=== PATIENT | male | born 1960 | race Caucasian/White ===

== ENCOUNTER 2017-03-08 08:22 | Observation (INO) | payer OTHER ==
[~2017-03-08] VITALS: Ht 175.3 cm; Wt 88.6 kg
[~2017-03-08 08:22] MED LIST: ADVAIR HFA120 INHALA IH; COMBIVENT RESPIM4 GM IH; PREDNISONE20 MG PO; TYLENOL REGULA325 MG PO
[2017-03-08 10:34] LABS: HEMATOCRIT 55.9 % (38.0-50.0); MCH 35.9 PG (29.0-34.0); MCHC 36.3 G/DL (30.0-36.0); MCV 98.9 FL (86-99); MEAN PLAT.VOLUME 9.7 uM^3 (9.0-12.4); PLATELET COUNT 94 K/uL (156-360); RBC DIS.WIDTH-CV 14.4 % (11.8-14.6); RBC DIS.WIDTH-SD 51.3 % (39-53); RED BLOOD COUNT 5.65 M/uL (4.00-5.50); WHITE BLOOD COUNT 7.8 K/uL (4.1-10.2)
[2017-03-08 10:45] LABS: PROTHROMBIN TIME 27.4 (9.2-11.2); PTT 26.3 (25-32)
[2017-03-08 10:52] LABS: CHLORIDE 98 mEq/L (99-109); SODIUM 140 mEq/L (136-147)
[2017-03-08 10:54] LABS: GLUCOSE 177 mg/dL (70-99)
[2017-03-08 10:55] LABS: ANION GAP 11 MEQ/L (2-14); INTER. NORMALIZED RATIO 2.6
[2017-03-08 10:56] LABS: TOTAL BILIRUBIN 2.2 mg/dL (0.0-1.0)
[2017-03-08 10:57] LABS: ALKALINE PHOSPHATASE 92 IU/L (3-129)
[2017-03-08 10:58] LABS: GFR ESTIMATE (CALCULATED) > 59 mL/min/
[2017-03-08 10:59] LABS: UREA NITROGEN (BUN) 5 mg/dL (9-23)
[2017-03-08] MEDS ORDERED: COMBIVENT RESPIM4 GM IH (13:11)
[2017-03-08] MEDS ORDERED: ADVAIR HFA120 INHALA IH (13:11)
[2017-03-08 15:21] LABS: INTER. NORMALIZED RATIO 1.4; PTT 28.3 (25-32)
[2017-03-08 15:23] LABS: Estimated Average Glucose 163 mg/dL (70-123); HEMOGLOBIN A1c (GLYCOHEMOGLOB) 7.3 % HGB (Below 5.7)
[2017-03-08 15:23] LABS: PROTHROMBIN TIME 14.5 (9.2-11.2)
[2017-03-08 20:10] VITALS: BP 147/86
[2017-03-09 00:14] VITALS: BP 154/82
[2017-03-09 07:07] LABS: MCH 37.1 PG (29.0-34.0); MCHC 36.9 G/DL (30.0-36.0); MCV 100.5 FL (86-99); MEAN PLAT.VOLUME 10.4 uM^3 (9.0-12.4); PLATELET COUNT 92 K/uL (156-360); RBC DIS.WIDTH-CV 14.6 % (11.8-14.6); RBC DIS.WIDTH-SD 53.9 % (39-53); RED BLOOD COUNT 5.47 M/uL (4.00-5.50); WHITE BLOOD COUNT 7.6 K/uL (4.1-10.2)
[2017-03-09 07:19] LABS: INTER. NORMALIZED RATIO 1.3; PROTHROMBIN TIME 13.2 (9.2-11.2)
[2017-03-09 07:36] LABS: ANION GAP 12 MEQ/L (2-14); CHLORIDE 98 MEQ/L (99-109); GFR ESTIMATE (CALCULATED) > 59 mL/min/; GLUCOSE 151 mg/dL (70-99); POTASSIUM 3.1 MEQ/L (3.7-5.4); SAMPLE HEMOLYSIS CHECK 0; SAMPLE ICTERIC CHECK 1; SAMPLE LIPEMIA CHECK 0; SODIUM 139 MEQ/L (136-147); UREA NITROGEN (BUN) 7 mg/dL (9-23)
[2017-03-09 08:07] VITALS: BP 136/91
[2017-03-09] MEDS ORDERED: XARELTO1 EACH PO (10:30)
[2017-03-09 11:51] LABS: POINT-OF-CARE METER ID UU13113725
[2017-03-09] MEDS ORDERED: ADVAIR HFA120 INHALA IH (14:30)
[2017-03-09] MEDS ORDERED: COMBIVENT RESPIM4 GM IH (14:30)
[2017-03-09] MEDS ORDERED: ENDOCET 5-3251 EACH PO (15:09)
[2017-03-09 15:34] VITALS: BP 136/86
[2017-03-09 15:52] LABS: ANION GAP 9 MEQ/L (2-14); CHLORIDE 99 MEQ/L (99-109); GFR ESTIMATE (CALCULATED) > 59 mL/min/; GLUCOSE 171 mg/dL (70-99); POTASSIUM 3.6 MEQ/L (3.7-5.4); SAMPLE HEMOLYSIS CHECK 0; SAMPLE ICTERIC CHECK 0; SAMPLE LIPEMIA CHECK 0; SODIUM 137 MEQ/L (136-147); UREA NITROGEN (BUN) 8 mg/dL (9-23)
[2017-03-09 16:31] LABS: POINT-OF-CARE METER ID UU13113725
== END 2017-03-09 16:59 | disposition home or self-care (01) ==
LOC: EME 08:22 → EDOF 13:19 → 5EAST 13:19 → EDOF 13:19 → 5EAST 13:31
PROVIDERS: Hospitalist; Internal Medicine; Nurse Practitioner Adult Health; Nurse Practitioner Family
DX: I82.432 Acute embolism and thrombosis of left popliteal vein (principal); I82.4Z2 Acute embolism and thrombosis of unspecified deep veins of left distal lower extremity; I26.99 Other pulmonary embolism without acute cor pulmonale; K76.0 Fatty (change of) liver, not elsewhere classified; K70.30 Alcoholic cirrhosis of liver without ascites; J44.9 Chronic obstructive pulmonary disease, unspecified; E87.6 Hypokalemia; D69.6 Thrombocytopenia, unspecified; D75.1 Secondary polycythemia; F10.21 Alcohol dependence, in remission; F17.210 Nicotine dependence, cigarettes, uncomplicated
CPT/HCPCS: 71020; 71275; 76705; 80048; 80048 91; 80053; 82948; 83036; 85027; 85610; 85730; 93971; 94640; 94640 76; 94799; 99202; 99281; 99285; G0378; J1650; J1815; J3480; S0028

== ENCOUNTER → 2018-04-28 | Outpatient (CLI) | payer OTHER ==
[~2018-04-28] VITALS: Ht 172.7 cm; Wt 90.7 kg
[~2018-04-28] MED LIST changes: +ENDOCET 5-3251 EACH PO; +METFORMIN HCL500 MG PO; +PRAVACHOL20 MG PO; +XARELTO1 EACH PO; +XARELTO20 MG PO
== END | disposition home or self-care (01) ==
LOC: AMB 12:00
PROVIDERS: Internal Medicine Gastroenterology
PROC: 0DBK8ZX Excision of Ascending Colon, Via Natural or Artificial Opening Endoscopic, Diagnostic (ICD-10-PCS; principal; 2018-04-28)
DX: D12.2 Benign neoplasm of ascending colon (principal); K57.30 Diverticulosis of large intestine without perforation or abscess without bleeding
CPT/HCPCS: 82948; 88305; 93005; J2250; J3010